=== PATIENT | male | born 2005 | race Caucasian/White ===

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

== ENCOUNTER 2025-04-02 01:04 | Emergency (ER) | payer SELFPAY | END 2025-04-02 03:30 | disposition home or self-care (01) | LOC: JD.ED 01:04 | DX: Z63.5 Disruption of family by separation and divorce (principal); Z65.8 Other specified problems related to psychosocial circumstances | CPT/HCPCS: 99282; 99284 ==